=== PATIENT | male | born 1975 | race Caucasian/White ===

== ENCOUNTER 2021-02-03 13:48 | Outpatient (CLI) | payer OTHER, SELFPAY ==
--- NOTE | ~2021-02-03 | XR_ITS ---
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 TECHNIQUE: Right 3rd finger frontal, lateral and oblique projections obtained and reviewed. There is no prior study for comparison. FINDINGS: Status post amputation at the shaft of the right 3rd distal phalanx. Some swelling over th e stump, but no osseous erosive change to suggest osteomyelitis. There are no acute fractures or disl ocations identified. There is no subcutaneous gas. The soft tissue is unremarkable. There are no radiopaque foreign bodies. IMPRESSION: Soft tissue swelling over right 3rd finger tip without osseous erosion. Reviewed, dictated and finalized at location A. IMPRESSION: Soft tissue swelling over right 3rd finger tip without osseous eros ion.
== END 2021-02-03 13:49 | disposition home or self-care (01) ==
PROVIDERS: PCP Family Medicine; Visit Provider Plastic Surgery
DX: M86.141 Other acute osteomyelitis, right hand (principal); M79.89 Other specified soft tissue disorders
CPT/HCPCS: 73140

== ENCOUNTER 2024-11-21 10:28 | Emergency (ER) | payer OTHER, SELFPAY ==
--- NOTE | ~2024-11-21 | XR_ITS ---
Left elbow Technique: AP, oblique, and lateral views were obtained. Clinical History: Pain Findings: No acute fracture or dislocation is seen. Osseous alignment is anatomic. Joint spaces are p reserved. There is no displacement of the fat pads, and soft tissues are unremarkable. Impression: Unremarkable radiographs. Reviewed, dictated and finalized at location . Impression: Unremarkable radiographs.
[2024-11-21 10:38] VITALS: BP 161/108; PULSE 87; RESP 16; TEMP 36.6; O2SAT 96
--- OUTSIDE RECORDS SUMMARY | 2024-11-21 11:28 | XMS_ITS | Clinical Summary ---
[place] [facility] [place] [address] [facility] Address [address] [place] [address] Care Team Providers Care Editor [employer] Name Role Phone Barbara Caballero MD Primary Care Provider + Neymar Bray MD Unavailable Allergies No known active allergies Medications lisinopril-hydr oCHLOROthiazide (PRINZIDE,ZESTO RETIC) 20-12.5 mg per tablet take 0.5 tablet by oral route every day 0 0 6 Active phenytoin ER (DILANTIN EXTENDED) 100 mg ER capsule take 6 capsule by oral route every day 0 0 6 Active Additional Information Patient not taking.Reported on 09/23/2023 aspirin 81 mg tablet take 1 tablet by oral route every day 0 0 6 Active magnesium oxide (MAG-OX) 415 mg (250 mg elemental) tablet take one tablet daily 0 0 6 Active Additional Information Patient not taking.Reported on 10/01/2023 Active Problems Problem Noted Date Diagnosed Date Encounter for screening colonoscopy 03/08/2023 Elevated creatine kinase level 07/06/2016 Overview (11/19/2016): Elevated creatine kinase level Seizure disorder 06/05/2016 Overview (11/19/2016): Seizure disorder Hypertension 06/05/2016 Overview (11/19/2016): Hypertension Medical History Medical History Date Comments Hypertension Family History Medical History Relation Name Comments Coronary artery disease Father Kirstin nary artery disease; Colon cancer Maternal Grandfather Cancer, colon; Coronary artery disease Mother Kirstin nary artery disease; Diabetes Mother Diabetes mellit us; Hypertension Mother Hypertension; Lupus Sister Systemic lupus erythematosus; Relation Name Status Comments Father Maternal Grandfather Mother Sister Social History Tobacco Use Types Packs/Day Years Used Date Smoking Tobacco: Former Cigarettes Q uit: 2021 Comments:Smoking History Pac ks/day: 0.5 Packs Alcohol Use Standard Drinks/Week Comments No 0 (1 standard drink = 0.6 oz pur e alcohol) AUDIT-C Answer Date Recorded Q1: How often do you have a drink containing alcohol? 4 or more times a week 10/01/2023 Q2: How many drinks containi ng alcohol do you have on a typical day when you are drinking? 1 or 2 Q3: How often do you have si x or more drinks on one occasion? Never 10/01/2023 Personal Safety Answer Date Recorded Have you ever been in or are you currently in a harmful physical or emotional relationship or is someone making you feel afraid or unsafe? Denies 10/01/2023 Sex and Gender Information Value Date Recorded Sex Assigned at Not on file Legal Sex Male 4:11 AM [employer] Gender Identity Not on file Sexual Orientation Not on file Obstetrics History Last Filed Vital Signs Vital Sign Reading Time Taken Comments Blood Pressure 107/85 10/01/2023 12:07 PM [employer] Pulse 1 10/01/2023 12:07 PM [employer] Temperature 36.4 C (97.6 F) 10/01/2023 11:45 AM [employer] Respiratory Rate 14 10/01/2023 12:0 7 PM [employer] Oxygen Saturation 97% 10/01/2023 12: 07 PM [employer] Inhaled Oxygen Concentration - - Weight 102.3 kg (225 lb 8.5 oz) 06/24/2020 8:00 PM [employer] Height 175.3 cm (5' 9 ) 06/24/2020 8:00 PM [employer] Body Mass Index 33.31 06/24/2020 8:00 PM [employer] Plan of Treatment Health Maintenance Due Date Last Done Comments Depression Screening 1975 Prostate Cancer Screening-PSA 1974 DTaP/Tdap/Td Vaccine (1 - Tdap) 1985 Hepatitis B Screening 1992 Regular Well Visit/Exam 18-64 1992 Zoster Vaccine (1 of 2) 2024 Covid-19 Vaccine (2023-2 5 season) 2024 11/22/2020, 10/25/2020 Influenza Vaccine (Season Ended) 2025 Colon Cancer Screening-Colonoscopy 10/01/2026 10/01/2023 Hepatitis C Screening Completed 06/05/2016 Pneumococcal vaccine <65 Aged Out No longer eligible based on patient's age to complete this topic Procedures Procedure Name Priority Date/Time Associated Diagnosis Comments COLONOSCOPY 10/01/2023 11:14 AM [employer] SERUM HEPATITIS C AB Routine 06/05/2016 12:09 PM CDT from Last 3 Months or Most Recently Relevant to Health Maintenance Results * Colonoscopy (10/01/2023 11:14 AM [employer]) Anatomical Region Laterality Modality Other Narrative Procedure Note Manny Mccloud MD - 10/01/2023 11:14 AM CST [facility] GI ENDOSCOPY Patient Name: Jann Kay Procedure Date: 10/01/2023 11:14 AM Date of : 1975 Admit Type: Outpatient Age: 48 Gender: Male Attending MD: Manny Mccloud M.D. Room: [facility] ENDOSCOPY ROOM 06 Note Status: Finalized Procedure: Colonoscopy Indications: Screening for colorectal malignant neoplasm Referring MD: Providers: Manny Mccloud M.D. Medicines: Monitored Anesthesia Care Complications: No immediate complications. Estimated Blood Loss: Estimated blood loss: none. Procedure: Pre-Anesthesia Assessment: - Prior to the procedure, a History and Physicalwas performed, and patient medications and allergieswere reviewed. The risks and benefits of the procedureand the sedation options and risks were discussed withthe patient. All questions were answered and informed consent was obtained. Patient identification and proposed procedure were verified. After reviewingthe risks and benefits, the patient was deemed in satisfactory condition to undergo the procedure.The anesthesia plan was to use monitored anesthesiacare (MAC). Immediately prior to administration of medications, the patient was re-assessed foradequacy to receive sedatives. The heart rate, respiratory rate, oxygen saturations, blood pressure, adequacyof pulmonary ventilation, and response to care were monitored throughout the procedure. The physical status of the patient was re-assessed after the procedure. The benefits, risks and alternatives of theprocedure and sedation were discussed and informed consentwas obtained. All questions were answered. Please referto the signed informed consent document in the medical record. The scope was passed under direct vision.The [id number]-LV021N colonoscope was introduced through theanus and advanced to the cecum, identified byappendiceal orifice and ileocecal valve. The colonoscopy was performed without difficulty. The patient tolerated the procedure well. The quality of the bowel preparation was fair. Scope withdrawal time was 13 minutes. Prep was administered in a split dose. Findings: The perianal and digital rectal examinations were normal. A 10 mm polyp was found in the cecum. The polyp was sessile. Thepolyp was removed with a hot snare. Resection and retrieval werecomplete. A 10 mm polyp was found in the hepatic flexure. The polyp wassessile. The polyp was removed with a hot snare. Resection and retrieval were complete. A 10 mm polyp was found in the transverse colon. The polyp wassessile. The polyp was removed with a hot snare. Resection and retrieval were complete. Two polyps were found in the transverse colon. The polyps were diminutive in size. These polyps were removed with a cold biopsy forceps. Resection and retrieval were complete. A diminutive polyp was found in the sigmoid colon. The polyp wasremoved with a cold biopsy forceps. Resection and retrieval were complete. A 10 mm polyp was found in the rectum. The polyp was sessile. Thepolyp was removed with a hot snare. Resection and retrieval werecomplete. Non-bleeding internal hemorrhoids were found during retroflexion. The hemorrhoids were small. The exam was otherwise without abnormality. Impression: - Preparation of the colon was fair. - One 10 mm polyp in the cecum, removed with a hot snare. Resected and retrieved. - One 10 mm polyp at the hepatic flexure, removedwith a hot snare. Resected and retrieved. - One 10 mm polyp in the transverse colon, removed with a hot snare. Resected and retrieved. - Two diminutive polyps in the transverse colon, removed with a cold biopsy forceps. Resected and retrieved. - One diminutive polyp in the sigmoid colon,removed with a cold biopsy forceps. Resected andretrieved. - One 10 mm polyp in the rectum, removed with a hot snare. Resected and retrieved. - Non-bleeding internal hemorrhoids. - The examination was otherwise normal. Recommendation: - Patient has a contact number available for emergencies. The signs and symptoms of potential delayed complications were discussed with thepatient. Return to normal activities tomorrow. Written discharge instructions were provided to thepatient. - High fiber diet. - Continue present medications. - Await pathology results. - Repeat colonoscopy in 3 years for surveillance. Manny Mccloud M.D. Manny Mccloud M.D. 10/01/2023 11:42:37 AM . Number of Addenda: 0 Note Initiated On: 10/01/2023 11:14 AM Recognized by the [place] [employer] for promoting quality in endoscopy us Manny Mccloud MD ENDOSCOPY PROCEDURES Final Resul t * Serum Hepatitis C ab (06/05/2016 12:09 PM CDT) HCV ab Non-Reacti ve Non-Reacti ve CDR HISTORICAL RESULTS Serum 06/05/2016 12:0 9 PM CDT Raj Carney MD LAB BLOOD ORDERABLES Sol ashley Result CDR HISTORICAL RESULTS from Last 3 Months or Most Recently Relevant to Health Maintenance Insurance [employer] [place] [employer] [place] Care Teams Editor [employer] Relationship Specialty Start Date End Date Barbara Caballero MD [address] [place] [id number] PCP - General 06/24/20 Neymar Bray MD [address] [place] [id number] 06/24/20
--- OUTSIDE RECORDS SUMMARY | 2024-11-21 11:28 | XMS_ITS | Data Portability ---
Author Organization [facility] [place], Main Office Address [address] [place] [address] Assessment No assessment recorded. Plan of Treatment Reminders Order Date Submit Date Provider Last Modified By Organization Details Last Modified Time Details Appointments None recorded. Lab CBC w/ auto diff 2023 [facility] (Lab), [address] [place], [address], 4 17:27:21 CMP, serum or plasma 2023 [facility] (Lab), [address] [place], [address], 4 17:27:21 lipid panel, serum [address] (Lab), [address] [place], [address], 5 08:37:06 TSH + free T4, serum 2023 [facility] (Lab), [address] [place], [address], 4 17:27:21 hepatitis C virus Ab, serum [address] (Lab), [address] [place], [address], 5 08:37:07 HbA1c (hemoglobi n A1c), blood 2023 024 [email or web address] 2 [facility] (Lab), [address], [place], [address], 5 08:37:07 Referral gastroente rologist referral 2022 023 [email or web address] Manny Mccloud MD, [address] [facility] , [address], [address], 3 14:17:33 Procedures None recorded. Surgeries None recorded. Imaging CT, chest, w/o contrast - *Please call pt to schedule* [address] [facility] Patient Access Centralized Scheduling, Centralized Scheduling, [address] [facility] , [place], [address], 3 13:24:46 Medication Orders Medrol (Anders) 4 mg tablets in a dose pack 2023 024 [id number], [address], [place], [address], 4 10:07:21 doxycyclin e hyclate 100 mg capsule 2023 024 [id number], [address], [place], [address], 4 10:07:21 lisinopril 20 mg-hydroch lorothiazi de 25 mg tablet 2023 024 [facility]/Pharmacy #[id number], [address], [place], [address], 4 16:15:48 Anaprox DS 550 mg tablet 2023 024 basil [facility]/Pharmacy #[id number], [address], [place], [address], 4 09:38:22 Patient TargetsNo targets recorded. Patient Instructions Encounter Date Encounter Id Patient Instructions Last Modified By Organization Details Last Modified Time 05/29/2024 [id number] Follow up in 6 months Obtain labs Prescriptions sent to pharmacy Tests: Referral: Recommend: Not available 05/29/2024 16:15:42 07/13/2024 [id number] Follow up [place] Prescriptions sent to pharmacy Obtain labs Tests: Referral: Recommend: Pneumococcal vaccine Not available 07/13/2024 10:01:54 Reason for Referral Dental Ceramist Referral for Screening for malignant neoplasm of colon Referring Physician: Barbara Caballero, Family Medicine, Encounter Date: 02/16/2023 Results Created Date Observation Date Name Description Value Unit Range Abnormal Flag Note LastModifiedBy Organization Detail LastModifiedTime 02/12/2002/19/2021 TESTO STERO NE, FREE+ TOTAL LC/MS testosterone , total, lc/MS 365.4 NG/dL 264.0- 916.0 This [facility] rp LC/MS -MS metho d is curre ntly certi fied by the CDC Hormo ne Stand ardiz ation Progr am (HoSt ). Adult male refer ence inter ansatacio is based on a popul ation of healt hy nonob valente males (BMI <30) betwe en 19 and 39 years old. Valeri martinez et.al . JCEM 2017, 102;1 161-1 173. PMID: 99824 103. Not Available [facility] (Lab) [address] [place], [address], 02/19/2021 07:11:22 02/12/2002/19/2021 TESTO STERO NE, FREE+ TOTAL LC/MS testosterone , free 11.00 NG/dL 5.00-2 1.00 Not Available [facility] (Lab) [address] [place], [address], 02/19/2021 07:11:22 02/12/20 21 02/19/2021 TESTO STERO NE, FREE+ TOTAL LC/MS % free testosterone 3.01 % 1.50-4 .20 Perfo rmed at: BN - [facility] rp [address] , [place] [address] Lab Direc tor: Carie de jesus MD, Phone : [phone] Not Available [facility] (Lab) [address] [place], [address], 02/19/2021 07:11:22 02/12/20 21 02/11/2021 HEMOG LOBIN A1C HA1C 5.4 % 4.0-6. 0 Diabe vinny Scree ivory Crite toñito: <5.7% Consi stent with absen ce of diabe vinny 5.7-6 .4% Consi stent with incre ased risk for diabe vinny (pred iabet es) >OR=6 .5% Consi stent with diabe vinny REFER ENCE: Diabe vinny Care 2016, 39(Montiel ppl.1 ):s13 -s22 Not Available [facility] [address] [place], [address], 02/11/2021 22:10:44 02/09/20 23 02/08/2023 CBC/C OMPLE TE BLD COUNT W/DIF F white blood cells 6.5 x10'3 /uL 4.2-10 .8 Not Available [facility] (Lab) [address] [place], [address], 02/08/2023 19:12:44 02/09/20 23 02/08/2023 CBC/C OMPLE TE BLD COUNT W/DIF F red blood cells 5.27 x10'6 /uL 4.10-5 .80 Not Available [facility] (Lab) [address] [place], [address], 02/08/2023 19:12:44 02/09/20 23 02/08/2023 CBC/C OMPLE TE BLD COUNT W/DIF F hemoglobin 15.5 g/dL 13.2-1 7.0 Not Available [facility] (Lab) [address] [place], [address], 02/08/2023 19:12:44 02/09/20 23 02/08/2023 CBC/C OMPLE TE BLD COUNT W/DIF F hematocrit 46.9 % 39.3-5 0.0 Not Available [facility] (Lab) [address] [place], [address], 02/08/2023 19:12:44 02/09/20 23 02/08/2023 CBC/C OMPLE TE BLD COUNT W/DIF F mean red cell volume 89.0 fL 80.0-9 7.0 Not Available [facility] (Lab) [address] [place], [address], 02/08/2023 19:12:44 02/09/20 23 02/08/2023 CBC/C OMPLE TE BLD COUNT W/DIF F mean red cell hemoglobin 29.4 pg 27.0-3 3.0 Not Available [facility] (Lab) [address] [place], [address], 02/08/2023 19:12:44 02/09/20 23 02/08/2023 CBC/C OMPLE TE BLD COUNT W/DIF F mean RBC HGB concentratio n 33.0 g/dL 31.0-3 6.0 Not Available [facility] (Lab) [address] [place], [address], 02/08/2023 19:12:44 02/09/20 23 02/08/2023 CBC/C OMPLE TE BLD COUNT W/DIF F red cell distribution width 12.9 % 11.8-1 5.5 Not Available [facility] (Lab) [address] [place], [address], 02/08/2023 19:12:44 02/09/20 23 02/08/2023 CBC/C OMPLE TE BLD COUNT W/DIF F platelets 218 x10'3 /uL 150-40 0 Not Available [facility] (Lab) [address] [place], [address], 02/08/2023 19:12:44 02/09/20 23 02/08/2023 CBC/C OMPLE TE BLD COUNT W/DIF F mean platelet volume 10.5 fL 9.0-12 .4 Not Available [facility] (Lab) [address] [place], [address], 02/08/2023 19:12:44 02/09/20 23 02/08/2023 CBC/C OMPLE TE BLD COUNT W/DIF F neutrophils 50.9 % 39.0-7 2.0 Not Available [facility] (Lab) [address] [place], [address], 02/08/2023 19:12:44 02/09/20 23 02/08/2023 CBC/C OMPLE TE BLD COUNT W/DIF F lymphocytes 32.8 % 16.0-4 7.0 Not Available [facility] (Lab) [address] [place], [address], 02/08/2023 19:12:44 02/09/2002/08/2023 CBC/C OMPLE TE BLD COUNT W/DIF F monocytes 9.8 % 5.0-12 .0 Not Available [facility] (Lab) [address] [place], [address], 02/08/2023 19:12:44 02/09/2002/08/2023 CBC/C OMPLE TE BLD COUNT W/DIF F eosinophils 5.4 % 1.0-7. 0 Not Available [facility] (Lab) [address] [place], [address], 02/08/2023 19:12:44 02/09/2002/08/2023 CBC/C OMPLE TE BLD COUNT W/DIF F basophils 0.8 % 0.0-2. 0 Not Available [facility] (Lab) [address] [place], [address], 02/08/2023 19:12:44 02/09/20 23 02/08/2023 CBC/C OMPLE TE BLD COUNT W/DIF F immature granulocytes 0.3 % 0.00-0 .50 Not Available [facility] (Lab) [address] [place], [address], 02/08/2023 19:12:44 02/09/2002/08/2023 CBC/C OMPLE TE BLD COUNT W/DIF F neutrophils, absolute count 3.31 x10'3 /uL 1.5-8. 0 Not Available [facility] (Lab) [address] [place], [address], 02/08/2023 19:12:44 02/09/2002/08/2023 CBC/C OMPLE TE BLD COUNT W/DIF F lymphocytes, absolute count 2.13 x10'3 /uL 1.07-3 .43 Not Available [facility] (Lab) [address] [place], [address], 02/08/2023 19:12:44 02/09/2002/08/2023 CBC/C OMPLE TE BLD COUNT W/DIF F monocytes, absolute count 0.64 x10'3 /uL 0.29-0 .99 Not Available [facility] (Lab) [address] [place], [address], 02/08/2023 19:12:44 02/09/2002/08/2023 CBC/C OMPLE TE BLD COUNT W/DIF F eosinophils, absolute count 0.35 x10'3 /uL 0.02-0 .53 Not Available [facility] (Lab) [address] [place], [address], 02/08/2023 19:12:44 02/09/20 23 02/08/2023 CBC/C OMPLE TE BLD COUNT W/DIF F basophils, absolute count 0.05 x10'3 /uL 0.01-0 .08 Not Available [facility] (Lab) [address] [place], [address], 02/08/2023 19:12:44 02/09/2002/08/2023 CBC/C OMPLE TE BLD COUNT W/DIF F immature granulocytes ,absolute 0.02 x10'3 /uL 0.00-0 .05 Not Available [facility] (Lab) [address] [place], [address], 02/08/2023 19:12:44 02/09/20 23 02/08/2023 CBC/C OMPLE TE BLD COUNT W/DIF F nucleated red blood cells 0.0 % -0 Not Available [facility] (Lab) [address] [place], [address], 02/08/2023 19:12:44 02/09/20 23 02/08/2023 CBC/C OMPLE TE BLD COUNT W/DIF F NRBC# 0.00 x10'3 /uL Not Available [facility] (Lab) [address] [place], [address], 02/08/2023 19:12:44 02/09/20 23 02/08/2023 LIPID PANEL cholesterol 167 mg/dL 140-19 9 NIH BOB NSUS RECOM MENDA TION FOR RACHEL STERO L: ADULT CHILD LOW RISK: <200 <170 BORDE RLINE : <200- 239 ----- HIGH RISK: >240 >200 Not Available [facility] (Lab) [address] [place], [address], 02/08/2023 19:31:24 02/09/2002/08/2023 LIPID PANEL triglyceride s 253 mg/dL 0-150 high NIH BOB NSUS REPOR T RECOM MENDA TION FOR TRIGL YCERI HARPREET: ADULT CHILD LOW RISK: <150 ----- BODER LINE: 150-1 99 ----- HIGH RISK: >200 ----- Not Available [facility] (Lab) [address] [place], [address], 02/08/2023 19:31:24 02/09/20 23 02/08/2023 LIPID PANEL HDL cholesterol 28 mg/dL 40- low Not Available [facility] (Lab) [address] [place], [address], 02/08/2023 19:31:24 02/09/20 23 02/08/2023 LIPID PANEL LDL cholesterol, calculated 88 mg/dL 0-130 NIH BOB NSUS REPOR T RECOM MENDA TIONS FOR LDL: ADULT CHILD LOW RISK <130 <110 (OPTI MAL LDL) <100 ----- BORDE RLINE : 130-1 59 ----- HIGH RISK: >160 >130 A TRIGL YCERI DE RESUL T >400 INVAL IDATE S THE CALCU LATIO N FOR LDL FRACT IONAT ION - THE LDL RESUL T WILL NOT BE REPOR TREVA. Not Available [facility] (Lab) [address] [place], [address], 02/08/2023 19:31:24 02/09/20 23 02/08/2023 HEPAT IC/LI ELOY PANEL alkaline phosphatase 52 U/L 38-126 Not Available [facility] (Lab) [address] [place], [address], 02/08/2023 19:31:29 02/09/20 23 02/08/2023 HEPAT IC/LI ELOY PANEL alanine aminotransfe rase 91 U/L 0-50 high Not Available [facility] (Lab) [address] [place], [address], 02/08/2023 19:31:29 02/09/20 23 02/08/2023 HEPAT IC/LI ELOY PANEL aspartate aminotransfe rase 47 U/L 15-46 high Not Available [facility] (Lab) [address] [place], [address], 02/08/2023 19:31:29 02/09/20 23 02/08/2023 HEPAT IC/LI ELOY PANEL bilirubin, total 0.30 mg/dL 0.20-1 .30 Not Available [facility] (Lab) [address] [place], [address], 02/08/2023 19:31:29 02/09/20 23 02/08/2023 HEPAT IC/LI ELOY PANEL bilirubin, conjugated (direct) 0.00 mg/dL 0.00-0 .30 Not Available [facility] (Lab) [address] [place], [address], 02/08/2023 19:31:29 02/09/20 23 02/08/2023 HEPAT IC/LI ELOY PANEL biliurubin,u ncong. (indirect) 0.10 mg/dL 0.00-1 .1 Not Available [facility] (Lab) [address] [place], [address], 02/08/2023 19:31:29 02/09/20 23 02/08/2023 HEPAT IC/LI ELOY PANEL total protein 7.5 g/dL 6.3-8. 2 Not Available [facility] (Lab) [address] [place], [address], 02/08/2023 19:31:29 02/09/20 23 02/08/2023 HEPAT IC/LI ELOY PANEL albumin 4.1 g/dL 3.4-5. 0 Not Available [facility] (Lab) [address] [place], [address], 02/08/2023 19:31:29 02/09/20 23 02/08/2023 HEPAT IC/LI ELOY PANEL globulin 3.4 g/dL 2.6-4. 2 Not Available [facility] (Lab) [address] [place], [address], 02/08/2023 19:31:29 02/09/20 23 02/08/2023 HEPAT IC/LI ELOY PANEL A/G ratio 1.2 ratio 1.0-2. 0 Not Available [facility] (Lab) [address] [place], [address], 02/08/2023 19:31:29 02/09/20 23 02/08/2023 BASIC METAB OLIC PANEL sodium 139 mmol/ L 137-14 5 Not Available [facility] (Lab) [address] [place], [address], 02/08/2023 19:31:39 02/09/20 23 02/08/2023 BASIC METAB OLIC PANEL potassium 4.0 mmol/ L 3.5-5. 1 Not Available [facility] (Lab) [address] [place], [address], 02/08/2023 19:31:39 02/09/20 23 02/08/2023 BASIC METAB OLIC PANEL chloride 102 mmol/ L 98-107 Not Available [facility] (Lab) [address] [place], [address], 02/08/2023 19:31:39 02/09/20 23 02/08/2023 BASIC METAB OLIC PANEL carbon dioxide 26 mmol/ L 22-30 Not Available [facility] (Lab) [address] [place], [address], 02/08/2023 19:31:39 02/09/20 23 02/08/2023 BASIC METAB OLIC PANEL anion gap 15.0 mmol/ L 14-22 Not Available [facility] (Lab) [address] [place], [address], 02/08/2023 19:31:39 02/09/20 23 02/08/2023 BASIC METAB OLIC PANEL glucose 98 mg/dL 70-99 Not Available [facility] (Lab) [address] [place], [address], 02/08/2023 19:31:39 02/09/20 23 02/08/2023 BASIC METAB OLIC PANEL BUN 17 mg/dL 8-19 Not Available [facility] (Lab) [address] [place], [address], 02/08/2023 19:31:39 02/09/20 23 02/08/2023 BASIC METAB OLIC PANEL creatinine 0.75 mg/dL 0.66-1 .25 Not Available [facility] (Lab) [address] [place], [address], 02/08/2023 19:31:39 02/09/20 23 02/08/2023 BASIC METAB OLIC PANEL GFR >60 Refer ence Range : [place] ge GFR Healt hy Adult : >60 mL/mi n/1.7 3 m2 Chron ic Kidne y Disea se: 15-60 mL/mi n/1.7 3 m2 Kidne y Failu re: <15/m L/min /1.73 m2 www.n iddk. nih.g ov The MDRD study equat ion has not been valid ated in child baldomero <18 years of age; pregn ant women ; the elder ly >85 years of age; or in some racia l or ethni c subgr oups, such as id nics. Outsi de the valid ated renetta eters , estim ated GFR is less accur ate, requi ring clini jp judgm ent on a case- by-ca se basis . Clini jp inter preta tion for other races and ages must be made by the clini naheed. The MDRD study equat ion has not been valid ated for the evalu ation of serum creat inine relat ed to nutri jayjay l statu s or medic ation usage . For perso ns <18 years of age, a pedia tric GFR calcu lator is avail able on the F websi te: https ://ryann capellan.matt michael.o gilbert/pr ofess ional s/kdo qi/gf r_cal culat or Not Available [facility] (Lab) [address] [place], [address], 02/08/2023 19:31:39 02/09/20 23 02/08/2023 BASIC METAB OLIC PANEL calcium 8.9 mg/dL 8.4-10 .2 Not Available [facility] (Lab) [address] [place], [address], 02/08/2023 19:31:39 02/09/20 23 02/08/2023 HEMOG LOBIN A1C HA1C 5.7 % 4.0-6. 0 Diabe vinny Scree ivory Crite toñito: <5.7% Consi stent with absen ce of diabe vinny 5.7-6 .4% Consi stent with incre ased risk for diabe vinny (pred iabet es) >OR=6 .5% Consi stent with diabe vinny REFER ENCE: Diabe vinny Care 2016, 39(Montiel ppl.1 ):s13 -s22 Not Available [facility] (Lab) [address] [place], [address], 02/08/2023 19:38:54 02/09/20 23 02/08/2023 TSH thyroid-stim ulating hormone 1.180 uIU/m L 0.465- 4.680 Not Available [facility] (Lab) [address] [place], [address], 02/08/2023 19:54:49 02/09/20 23 02/15/2023 TESTO STERO NE, FREE+ TOTAL LC/MS testosterone , total, lc/MS 315.8 NG/dL 264.0- 916.0 This [facility] rp LC/MS -MS metho d is curre ntly certi fied by the CDC Hormo ne Stand ardiz ation Progr am (HoSt ). Adult male refer ence inter anastacio is based on a popul ation of healt hy nonob valente males (BMI <30) betwe en 19 and 39 years old. Valeri martinez et.al . JCEM 2017, 102;1 161-1 173. PMID: 16298 103. Not Available [facility] (Lab) [address] [place], [address], 02/15/2023 02:07:25 02/09/20 23 02/15/2023 TESTO STERO NE, FREE+ TOTAL LC/MS testosterone , free 9.79 NG/dL 5.00-2 1.00 Not Available [facility] (Lab) [address] [place], [address], 02/15/2023 02:07:25 02/09/20 23 02/15/2023 TESTO STERO NE, FREE+ TOTAL LC/MS % free testosterone 3.10 % 1.50-4 .20 Perfo rmed at: BN - [facility] [place] [address] [facility] , [place] [address] Lab Direc tor: Carie de jesus MD, Phone : [phone] Not Available [facility] (Lab) [address] [place], [address], 02/15/2023 02:07:25 02/04/20 21 02/03/2021 XR, finge r(s), 2 or more view No observ ation record ed. [id number] [facility] (Imaging) [address] [place] [address] [facility], [place], [address], 10/07/2022 16:10:47 06/12/20 21 06/24/2020 CT, abdom en + pelvi s, w/ contr ast No observ ation record ed. [id number] Not Available 10/07/2022 16:10:47 03/03/20 23 03/02/2023 CT, chest , w/o contr ast No observ ation record ed. [address] ([facility]) [address], [place], [address], 03/10/2023 11:25:34 07/17/20 23 07/14/2023 CT, abdom en + pelvi s, w/ contr ast No observ ation record ed. [address] [facility] [address] [place] [address] [address], [place], [address], 12/17/2023 17:09:51 Result Notes None recorded. 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 Active 2019 Not Available [facility] 3 16:10:14 Hypertensi ve disorder 33485534 Active 2019 Rosemary Ellis APRN [address], [place], [address] , [employer] 4 13:46:24 Degenerati on of interverte bral disc 23333851 Active 2019 Rosemary Ellis APRN [address], [address], [place], [address] , [employer] 4 13:46:21 Adult health examinatio n Active 2022 Barbara Caballero MD [address], [place], [address] , [employer] 3 13:28:43 Weight gain 4230865 Active 2022 Barbara Caballero MD [address], [address], [place], [address] , [employer] 3 13:29:01 Prediabete s 236417191 Active 2022 Rosemary Ellis APRN [address], [place], [address] , [employer] 4 13:46:30 Multiple nodules of lung 535431256 Active 2022 Rosemary Ellis APRN [address], [place], [address] , [employer] 4 13:46:27 CT of chest abnormal 4002250864990 9102 Active 2022 Rosemary Ellis APRN [address], [place], [address] , [employer] 4 13:46:19 Upper respirator y infection 12055071 Active 2023 Rosemarytracy ContrerasSHU mahoney [address], [address], [place], [address] , [facility] 4 10:00:31 Persistent cough 639792884 Active 2023 Rosemarytracy ContrerasSHU mahoney [address], [address], [place], [address] , [facility] 4 10:01:02 Problem Notes None recorded. Procedures Surgical History None recorded. Imaging Results Imaging Date Name Status LastModified by [facility] Details LastModified Time 02/03/2021 XR, finger(s), 2 or more view completed [id number] [facility] (Imaging) [address] [place] [address] [address], [place], [address], 10/07/2022 16:10:47 06/24/2020 CT, abdomen + pelvis, w/ contrast completed [id number] Information not available 10/07/2022 16:10:47 03/02/2023 CT, chest, w/o contrast completed [address] ([facility]) [address] [place] [address] , [place], [address], 03/10/2023 11:25:34 07/14/2023 CT, abdomen + pelvis, w/ contrast completed [address] [facility] [address] [place] [address] [facility] [address], [place], [address], 12/17/2023 17:09:51 Procedure Notes None recorded. Medical Equipment None Reported. Allergies No known drug allergies Medications Name Sig Start Date Stop Date Status Note LastModified by Organization Details LastModified Time cyclobenzap rine 10 mg tablet Take 1 tablet 3 times a day by oral route as needed. 11/14 completed Not Available Not Available Not Available prednisone 10 mg tablet TAKE 4 TABLETS BY MOUTH DAILY X3DAYS, 3TABS DAILY X2DAYS, 2TABS DAILY X1DAY, 1TAB DAILY X1DAY 10/21 /2024 completed Not Available Not Available Not Available doxycycline hyclate 100 mg capsule Take 1 capsule twice a day by oral route as directed for 10 days. active Not Available Not Available No t Available benzonatate 200 mg capsule TAKE 1 CAPSULE BY MOUTH THREE TIMES A DAY NEEDED FOR COUGH 07/13 completed Not Available Not Available Not Available dicyclomine 20 mg tablet TAKE 1 TABLET BY MOUTH 3 TIMES A DAY NEEDED 11/14 completed Not Available Not Available Not Available cephalexin 500 mg capsule TAKE 1 CAPSULE BY MOUTH THREE TIMES A DAY 02/17 completed Not Available Not Available Not Available naproxen sodium 550 mg tablet Take 1 tablet every 12 hours by oral route. 07/13 completed Not Available Not Available Not Available lisinopril 20 mg-hydrochl orothiazide 25 mg tablet TAKE 1 TABLET BY MOUTH EVERY DAY. active Not Available Not Available No t Available Tylenol 325 mg tablet Take 2 tablets every 6 hours by oral route. active Not Available Not Available No t Available codeine 10 mg-guaifene sin 100 mg/5 mL oral liquid Take 10 mL every 4 hours by oral route as needed, for persisten t cough. active Not Available Not Available No t Available methylpredn isolone 4 mg tablets in a dose pack Take 1 dose pk every day by oral route as directed. active Not Available Not Available No t Available lisinopril 40 mg tablet Take 1 tablet every day by oral route. 09/21 completed Not Available Not Available Not Available amoxicillin 875 mg-potassiu m clavulanate 125 mg tablet TAKE 1 TABLET BY MOUTH TWICE A DAY 05/29 completed Not Available Not Available Not Available ibuprofen active Not Available Not Jai ilable Not Available naproxen 08/30 completed Not Available Not Available Not Available Ultra Thin Lancets 30 gauge USE TO TEST ONCE DAILY 07/13 completed Not Available Not Available Not Available True Metrix Glucose Test Strip test once daily dx e11.9 07/13 completed Not Available Not Available Not Available True Metrix Air Glucose Meter USE TO TEST ONCE DAILY 07/13 completed Not Available Not Available Not Available Vitals Date Recorded Body mass index (BMI) Body height Oxygen saturation Oxygen saturation in Arterial blood by Pulse oximetry Heart rate Body temperature Body weight Systolic blood pressure Diastolic blood pressure Provider Name and Address Organization Details Last Updated DateTime 1 29.8 kg/m2 175.26 cm 97 % 97 % 80 /min 97.6 [degF] 11283.6 6 g 120 mm[Hg] 84 mm[Hg] Not Available [employer] 3 16:10:11 Date Recorded Body weight Body temperature Heart rate Oxygen saturation Oxygen saturation in Arterial blood by Pulse oximetry Body mass index (BMI) Body height Systolic blood pressure Diastolic blood pressure Provider Name and Address Organization Details Last Updated DateTime 3 52137.3 2 g 96.8 [degF] 85 /min 97 % 97 % 32 kg/m2 176.53 cm 124 mm[Hg] 82 mm[Hg] Mendez Lewis RN [facility] 3 16:31:18 Date Recorded Body weight Body mass index (BMI) Body height Respiratory rate Pain severity - 0-10 verbal numeric rating [Score] - Reported Heart rate Oxygen saturation Oxygen saturation in Arterial blood by Pulse oximetry Systolic blood pressure Diastolic blood pressure Provider Name and Address Organization Details Last Updated DateTime 4 201796. 95 g 35.4 kg/m2 176.53 cm 18 /min 0 76 /min 97 % 97 % 130 mm[Hg] 80 mm[Hg] Rosemary Ellis APRN [address], [place], [address] [facility] 4 16:00:17 Date Recorded Body height Body mass index (BMI) Body weight Body temperature Heart rate Oxygen saturation Oxygen saturation in Arterial blood by Pulse oximetry Systolic blood pressure Diastolic blood pressure Provider Name and Address Organization Details Last Updated DateTime 4 176.53 cm 33.8 kg/m2 001872. 23 g 97.9 [degF] 91 /min 98 % 98 % 134 mm[Hg] 88 mm[Hg] Alicia Smith MA [facility] 4 09:37:50 Social History Question Answer Notes LastModified by Organization Details LastModified Time Tobacco Smoking Status Former Smoker quit around 2015 Barbara Caballero MD [address], [place], [address], [employer] 02/16/2023 16:07:52 Do You Have An Advance Directive? No Information not available 05/29/2024 What Is Your Level Of Alcohol Consumption? Occasional [id number] Information not available 10/07/2022 Is Blood Transfusion Acceptable In An Emergency? Yes Information not available 05/29/2024 What Is Your Level Of Caffeine Consumption? None [id number] Information not available 10/07/2022 How Much Tobacco Do You Chew? None [id number] Information not available 10/07/2022 What Is Your Code Status? Full Code Information not available 05/29/2024 In The 14 Days Before Symptom Onset, Have You Had Close Contact With A Laboratory-confi rmed COVID-19 While That Case Was Ill? No Information not available 05/29/2024 In The 14 Days Before Symptom Onset, Have You Had Close Contact With A Person Who Is Under Investigation For COVID-19 While That Person Was Ill? No Information not available 05/29/2024 What Type Of Diet Are You Following? REGULAR [id number] Information not available 10/07/2022 Which Illicit Or Recreational Drugs Have You Used? No [id number] Information not available 10/07/2022 Do You Or Have You Ever Used E-cigarettes Or Vape? Never Used Electronic Cigarettes [id number] Information not available 10/07/2022 Have There Been Any Changes To Your Family Or Social Situation? No Information not available 05/29/2024 When Did You Quit Smoking? 6-10yearssincelast cigarette Information not available 05/29/2024 Are There Any Guns Present In Your Home? No Information not available 05/29/2024 Do You Use Insect Repellent Routinely? No Information not available 05/29/2024 Where [facility] You Live? [facility] Information not available 05/29/2024 Do You Have A Medical Power Of Senior Analyst Market Intelligence? No Information not available 05/29/2024 What Was The Date Of Your Most Recent Tobacco Screening? 07/13/2024 [email or web address] Information not available 07/13/2024 How Many Children Do You Have? 2 Information not available 05/29/2024 Have You Ever Been Counseled For Unhealthy Alcohol Use? No Information not available 05/29/2024 Do You Have Any Pets? Yes Information not available 05/29/2024 What Is Your Relationship Status? Information not available 05/29/2024 Do You Use Your Seat Belt Or Car Seat Routinely? Yes Information not available 05/29/2024 Are You Sexually Active? Yes Information not available 05/29/2024 Do You Have Smoke And Carbon Monoxide Detectors In Your Home? Yes Information not available 05/29/2024 Are You Passively Exposed To Smoke? Yes Information not available 05/29/2024 Do You Or Have You Ever Used Smokeless Tobacco? Never Used Smokeless Tobacco [id number].[id number] Information not available 10/07/2022 Are There Any Smokers In Your House? Yes Information not available 05/29/2024 Do You Feel Stressed (tense, Restless, Nervous, Or Anxious, Or Unable To Sleep At Night)? [id number] Information not available 05/29/2024 Do You Use Any Illicit Or Recreational Drugs? No Information not available 05/29/2024 Do You Use Sunscreen Routinely? No Information not available 05/29/2024 Has Tobacco Cessation Counseling Been Provided? No Information not available 05/29/2024 Have You Recently Traveled Abroad? No Information not available 05/29/2024 Do You Have Any Dietary Restrictions? No Information not available 05/29/2024 Sex: Male Functional Status Question Answer Note LastModified by Organizat ion Details LastModified Time What is your exercise level? None [id number] Information not available 10/07/2022 Mental Status None recorded. Family History Relationship Description Onset Age of this Age Resolved Age Notes LastModified by Organization Details LastModified Time Mother Hypertensive disorder [id number] Not available 10/07/2022 16:10:02 Mother Congestive heart failure [id number] Not available 10/07/2022 16:10:02 Father Hypertensive disorder [email or web address] Not available 2022 16:06:50 Medical History Condition Response BLINDNESS N RHEUMATIC FEVER N BLADDER PROBLEMS N KIDNEY STONES N MRSA N OTHER # 1 N POLIO N LUNG DISEASE/DISORDER N RADIATION / CHEMOTHERAPY N COPD N Other # 2 N BLOOD DISEASES N SURGERY N EAR OR HEARING PROBLEMS N MUMPS N DEPRESSION (INCLUDING POST ) N FEMALE PROBLEMS / INFECTIONS N BOWEL PROBLEMS N STROKE/TIA N THYROID DISEASE N ULCERS N BENIGN PROSTATIC HYPERPLASIA N MEASLES N CERVICALGIA N TB SKIN TEST N MYOCARDIAL INFARCTION N PARAPELGIA N OBESITY N GERD/NAUSEA N ANEURYSM N URINARY/BLADDER/KIDNEY PROBLEMS N CORONARY ARTERY DISEASE (CAD) N MENIERE'S DISEASE N ADDICTION CONCERNS N ENDOMETRIOSIS N USE OF BLOOD THINNERS N SKIN PROBLEMS N EMPHYSEMA N GASTROINTESTINAL DISORDER N MUSCLE,JOINT OR BONE PROBLEMS N GASTROINTESTINAL BLEEDING N BLOOD CLOTS N ASTHMA N CATARACTS N ERECTILE DYSFUNCTION N GI PROBLEMS N CHF N Low Testosterone N NEUROPATHY N INFERTILITY N AIDS/HIV N FRACTURES N CHEMOTHERAPY / RADIATION N VISION/EYE PROBLEMS N LIVER DISEASE N MALE HYPOGONADISM N HYPERTENSION N TOURETTE'S N ANXIETY DISORDER N BLOOD TRANSFUSION N ANEMIA/BLOOD DISORDER N CHRONIC EAR INFECTIONS N BRONCHITIS N TUBERCULOSIS N GLAUCOMA N FOOT PROBLEM N DIVERTICULITIS N CHICKENPOX N SLEEP APNEA N ALLERGIES/HAYFEVER N INFECTIOUS DISEASE N HEART ARRHYTHMIA N PROSTATE N INSOMNIA N HIGH CHOLESTEROL / HYPERLIPIDEMIA N HYPERTHYROIDISM N EYE PROBLEMS N EATING DISORDER N EDEMA N CHRONIC PAIN SYNDROME N CAROTID BLOCKAGE N CONSTIPATION N BACK / NECK PROBLEMS N HAVE YOU BEEN HOSPITALIZED OR SEEN IN [facility] IN THE PAST YEAR ? N ATHEROSCLEROSIS N BREAST PROBLEMS N DIALYSIS N ECZEMA N FIBROMYALGIA N OSTEOPOROSIS N ARTHRITIS N NO SIGNIFICANT PAST MEDICAL HISTORY N APPENDICITIS N DIABETES, TYPE N BAD TEETH N HEARTBURN / REFLUX N ADD/ADHD N AUTISM SPECTRUM DISORDER (ASD) N HEPATITIS / LIVER DISEASE N PULMONARY DISEASE N GOUT N SLEEP DISORDER N ALZHEIMER'S DISEASE N PAIN N HERPES N DEMENTIA N HEADACHES/MIGRAINES N SEIZURES/EPILEPSY N VASCULAR DISEASE N PACEMAKER N DIZZINESS N HEART DISEASE/HEART PROBLEMS N KIDNEY DISEASE N DEVELOPMENTAL OR BEHAVIORAL DISORDERS N MULTIPLE SCLEROSIS N SCARLET FEVER N MENTAL DISORDER/ILLNESS N CARDIAC ARRHYTHMIA N CANCER: SPECIFY N PNEUMONIA N ATRIAL FIBRILLATION N Gall Stones N PULMONARY EMBOLISM N AUTOIMMUNE DISEASE N Immunizations Vaccine Type Date Status Note Provider Nam e and Address Organization Details Recorded Time COVID-19, mRNA, LNP-S, PF, 100 mcg/0.5mL dose or 50 mcg/0.25mL dose 10/25/2020 completed Rosemary Ellis APRN [address], [place], [address], [place] [employer] 05/23/2024 13:45:10 COVID-19, mRNA, LNP-S, PF, 100 mcg/0.5mL dose or 50 mcg/0.25mL dose 11/22/2020 completed Rosemary Ellis APRN [address], [place], [address], [place] [employer] 05/23/2024 13:45:10 Past Encounters Encounter ID Performer Location Encounter Start Date Encounter Closed Date Diagnosis/Indication Diagnosis SNOMED-CT Code Diagnosis ICD10 Code Diagnosis Note [id number] [facility] [place] Primary Care [facility] [address] [facility] [address] [place] [address] 11/14/2020 00:00:00 12/05/2020 14:13:02 [id number] [facility] Primary Care [address] [place] [address] 02/11/2021 00:00:00 02/11/2021 08:55:06 [id number] S_G Primary Care [facility] [address] [facility] [address] [facility] [place] [address] 02/17/2021 00:00:00 02/17/2021 14:46:21 [id number] Barbara Caballero MD [facility] [place] Primary Care [facility] [address] [facility] [address] [place] [address] 02/08/2023 08:01:22 03/08/2023 16:32:58 [id number] Barbara Caballero MD [facility] [place] Primary Care [facility] [address] [facility] [address] [facility] [place] [address] 02/16/2023 15:55:17 02/16/2023 16:31:42 Adult health examination 176581707 Z00.00 E78.5 Z79.899 colonoscop y referral givenlabs up to dateflu vaccine yearlycovi d booster this fallshingr ix vaccine series at age 49 Prediabetes 281460040 R7 3.03 resolved with lifestyle changes Screening for malignant neoplasm of colon 792711575 Z12.11 Multiple n odules of lung 039969650 R91.8 [id number] Rosemary Ellis APRN [facility] Internal Med [facility] [address] [facility] [address] [place] [address] 05/29/2024 15:32:45 05/29/2024 16:18:59 Diabetes mellitus screening 218279625 Z13.1 Hyperlipid emia screening 293979153 Z13.220 Screening for disorder 852386504 Z13.9 Thyroid di sorder screening 138267950 Z13.29 Hepatitis C screening 41 0703355 Z11.59 Hypertensive disorder 38 719762 I10 Degenerati on of intervertebral disc 94700154 M51.9 [id number] Rosemary Ellis APRN [facility] Internal Med [facility] [address] [facility] [address] [place] [address] 07/13/2024 09:20:37 07/13/2024 10:40:16 Upper respiratory infection 55664211 J06.9 Persistent cough 1466998 02 R05.3 Health Concerns Section Related Observation LastModified by Organization Detai ls LastModified Time None Recorded Concern Status LastModified by Organization Details LastModified Time None Recorded Advance Directives Directive N: Payers Encounter Date Sequence Insurance Name Policy Number Policy Blunt Covered Member ID Blunt Member ID Guarantor Name 02/08/2023 1 [place] [id number] Jann Kay [id number] Jann Kay 02/16/2023 1 [place] [id number] Jann Littlejohn Petras [id number] Jann Kay 05/29/2024 1 [place] [id number] Jann Littlejohn Petras [id number] Jann Kay 07/13/2024 1 [place] [id number] Jann Kay [id number] Jann Kay Notes Date Note Type Note Provider Name and Address Organization Details Recorded Time 02/16/2023 text/html here for wellnes s exam. Barbara Caballero MD [address] [facility], [place], [address], [facility] [employer] [facility] 03/08/2023 10:16:55 05/29/2024 text/html Jann presents today to establish care as a new patient. He is also in need of medication refills. Rosemary Ellis APRN [address] [facility] [address], [place], [address], [facility] [employer] [facility] 05/29/2024 16:15:54 07/13/2024 text/html Jann presents today for a release to return to work. He states that he started having symptoms on Wednesday, he has been running a fever, cough, sweating, lethargic at times. He also has a rash on his palms, h states that it is not itching or painful. He does state that he has been hunting deer a few weeks ago and cleaning them. 05/29/2024Jann presents today to establish care as a new patient. He is also in need of medication refills. Rosemary Ellis APRN [address] [facility] [address], [place], [address], [facility] [employer] [facility] 07/13/2024 10:09:05
--- OUTSIDE RECORDS SUMMARY | 2024-11-21 11:28 | XMS_ITS | Referral Summary ---
Author Organization [facility] [address] [facility] Address [address] [place] [address] Care Team Providers Care Rfid Systems Engineer Name Role Phone Barbara Caballero MD Primary Care Provider + Neymar Bray MD Unavailable [phone] Allergies No known active allergies Medications lisinopril-hydr [...] Seizure disorder Hypertension 06/05/2016 Overview (11/19/2016): Hypertension Social History Tobacco Use Types Packs/Day Years [...] on file Legal Sex Male 4:11 AM PIGMENT GRINDER Gender Identity Not on file Sexual Orientation Not on file Last Filed Vital Signs Vital Sign Reading Time Taken Comments Blood Pressure 107/85 10/01/2023 12:07 PM PIGMENT GRINDER Pulse 1 10/01/2023 12:07 PM PIGMENT GRINDER Temperature 36.4 C (97.6 F) 10/01/2023 11:45 AM PIGMENT GRINDER Respiratory Rate 14 10/01/2023 12:0 7 PM PIGMENT GRINDER Oxygen Saturation 97% 10/01/2023 12: 07 PM PIGMENT GRINDER Inhaled Oxygen Concentration - - Weight 102.3 kg (225 lb 8.5 oz) 06/24/2020 8:00 PM PIGMENT GRINDER Height 175.3 cm (5' 9 ) 06/24/2020 8:00 PM PIGMENT GRINDER Body Mass Index 33.31 06/24/2020 8:00 PM PIGMENT GRINDER Plan of Treatment Not on file Procedures Procedure Name Priority Date/Time Associated Diagnosis Comments COLONOSCOPY 10/01/2023 11:14 AM PIGMENT GRINDER SERUM HEPATITIS C AB Routine 06/05/2016 12:09 PM CDT from Last 3 Months or Most Recently Relevant to Health Maintenance Results * Colonoscopy (10/01/2023 11:14 AM PIGMENT GRINDER) Anatomical Region Laterality Modality Other Narrative Procedure Note Manny Mccloud MD - 10/01/2023 11:14 AM CST [facility] GI ENDOSCOPY Patient Name: Jann Kay Procedure Date: 10/01/2023 11:14 AM Date of : 1975 Admit Type: Outpatient Age: 48 Gender: Male Attending MD: Manny Mccloud M.D. Room: [facility] ENDOSCOPY ROOM 06 Note Status: Finalized Procedure: [...] The scope was passed under direct vision.The [id number]-[id number] colonoscope was introduced through theanus and advanced [...] On: 10/01/2023 11:14 AM Recognized by the [place] for promoting quality in endoscopy Manny Mccloud MD ENDOSCOPY PROCEDURES Final Resul t * Serum Hepatitis C ab (06/05/2016 12:09 PM CDT) HCV ab Non-Reacti ve Non-Reacti ve CDR HISTORICAL RESULTS Serum 06/05/2016 12:0 9 PM CDT Raj Carney MD LAB BLOOD ORDERABLES Sol ramirez Result CDR HISTORICAL RESULTS from Last 3 Months or Most Recently Relevant to Health Maintenance Insurance [employer] [place] [employer] [place] [employer] [place] Care Teams Rfid Systems Engineer Relationship Specialty Start Date End Date Barbara Caballero MD [address] [place] [address] [address] PCP - General 06/24/20 Neymar Bray MD [address] [place] [address] 06/24/20
--- NOTE | 2024-11-21 12:16 | ED.UPPEXIN ---
HPI - Extremity Injury (Upper) General Chief Complaint: Extremity Injury, Upper Stated Complaint: L elbow pain Time Seen by Provider: 11/21/24 11:39 History of Present Illness HPI narrative: 49-year-old male with history of hypertension presents to emergency department for left elbow pain after an injury that occurred 4 days ago. Patient states he was at work 4 days ago and picked up a heavy piece of plywood and felt a pop in the medial aspect of his elbow. He has had pain to the medial aspect of his elbow since then has developed ecchymosis to this region. He states he is having difficulty lifting of objects due to pain. He denies weakness or pain to the hand, weakness or pain to the shoulder. No other injuries acquired. Related Data Allergies Allergy/AdvReac Type Severity Reaction Status Date / Time No Known Allergies Allergy Mild Verified 11/21/24 10:45 Review of Systems Review of Systems: All systems reviewed & are unremarkable except as noted in HPI and below Exam Narrative: GENERAL: Well-appearing, well-nourished, and in no acute distress. HEAD: Normocephalic, atraumatic. EYES: EOMI. ENT: Nares clear, no rhinorrhea or epistaxis. Mucous membranes moist. NECK: Supple. CHEST: Clear to auscultation. No respiratory distress. HEART: Regular rate and rhythm. No murmur heard. Normal peripheral pulses. EXTREMITIES: Tenderness over the left proximal and distal humerus with overlying green ecchymosis. Compartments are soft, no edema. Patient has full active and passive range of motion of elbow, wrist and fingers. Radial, median and ulnar nerves are intact. Radial pulse 2 +. Sensation intact throughout. Negative Yergason's test. no Marvin deformity SKIN: Warm, dry, no rash. NEURO: No focal deficits. Alert and oriented x3 Course Vital Signs Vital signs: Vital Signs Temperature 97.9 F 11/21/24 10:38 Pulse Rate 87 11/21/24 10:38 Respiratory Rate 16 11/21/24 10:38 Blood Pressure 161/108 H 11/21/24 10:38 Pulse Oximetry 96 11/21/24 10:38 Oxygen Delivery Room Air 11/21/24 10:38 Temperature 97.9 F 11/21/24 10:38 Pulse Rate 79 11/21/24 12:22 Respiratory Rate 15 11/21/24 12:22 Blood Pressure 150/95 H 11/21/24 12:22 Pulse Oximetry 99 11/21/24 12:22 Oxygen Delivery Room Air 11/21/24 10:38 MDM - Extremity Injury (Upper) MDM Narrative Medical decision making narrative: 49-year-old male presents emergency department for left medial elbow pain for 4 days. Four days ago patient lifted up a heavy piece of plywood and felt a pop to this area, has since developed increased bruising and pain. Pain is worse when flexing his elbow while picking up objects. Triage vitals with hypertension, otherwise unremarkable. Patient is afebrile and nontoxic appearing. Exam is significant for the above. Patient is neurovascularly intact with no obvious deformity. X-ray of the elbow is unremarkable. Patient updated on results. Presentation consistent with medial epicondylitis/strain. He was given Flexeril and naproxen with improvement. Offered Trav wrap and sling however patient declined states he will get a wrap [id number] at pharmacy. Advised follow-up with orthopedist, return precautions discussed. He is agreeable with the plan verbalized understanding. Discharged in stable condition. Discharge Plan Discharge Clinical Impression: Elbow strain Qualifiers: Encounter type: initial encounter Laterality: left Qualified Code(s): S56.912A - Strain of unspecified muscles, fascia and tendons at forearm level, left arm, initial encounter Patient Disposition: Home Condition: Stable Instructions: Antibiotic Form, Elbow Sprain (ED) Additional Instructions: Rest, ice, elevate and compress. Take the medications as directed. Return to the emergency department if you develop new or worsening symptoms. Patient Language: Burkinan Prescriptions: New cyclobenzaprine 10 mg tablet 10 mg PO TID PRN (Reason: muscle spasm) Qty: 14 0RF naproxen 500 mg tablet 500 mg PO BID PRN (Reason: pain) Qty: 20 0RF Follow-up/Referrals: Zaki Hutson MD [Physician] - UNKNOWN,DOCTOR [Primary Care Provider] -
[2024-11-21] MEDS: NAPROXEN 500 MG TABLET PO (12:21)
[2024-11-21] MEDS: CYCLOBENZAPRINE HCL 10 MG TABLET PO (12:21)
[2024-11-21 12:22] VITALS: BP 150/95; PULSE 79; RESP 15; O2SAT 99
--- OUTSIDE RECORDS SUMMARY | 2024-11-21 13:07 | XMS_ITS | Referral Summary ---
Author Organization [facility] [address] [facility] Address [address] [place] [address] Care Team Providers Care Photostatic Copy Maker Name Role Phone Barbara Caballero MD Primary Care Provider + Neymar Bray MD Unavailable [phone] Allergies No known active allergies Medications [...] on file Legal Sex Male 4:11 AM BENCH WORKER Gender Identity Not on file Sexual Orientation Not on file Last Filed Vital Signs Vital Sign Reading Time Taken Comments Blood Pressure 107/85 10/01/2023 12:07 PM BENCH WORKER Pulse 1 10/01/2023 12:07 PM BENCH WORKER Temperature 36.4 C (97.6 F) 10/01/2023 11:45 AM BENCH WORKER Respiratory Rate 14 10/01/2023 12:0 7 PM BENCH WORKER Oxygen Saturation 97% 10/01/2023 12: 07 PM BENCH WORKER Inhaled Oxygen Concentration - - Weight 102.3 kg (225 lb 8.5 oz) 06/24/2020 8:00 PM BENCH WORKER Height 175.3 cm (5' 9 ) 06/24/2020 8:00 PM BENCH WORKER Body Mass Index 33.31 06/24/2020 8:00 PM BENCH WORKER Plan of Treatment Not on file Procedures Procedure Name Priority Date/Time Associated Diagnosis Comments COLONOSCOPY 10/01/2023 11:14 AM BENCH WORKER SERUM HEPATITIS C AB Routine 06/05/2016 12:09 PM CDT from Last 3 Months or Most Recently Relevant to Health Maintenance Results * Colonoscopy (10/01/2023 11:14 AM BENCH WORKER) Anatomical Region Laterality Modality Other Narrative Procedure Note Manny Mccloud MD - 10/01/2023 11:14 AM CST [facility] GI ENDOSCOPY Patient Name: Jann Kay Procedure Date: 10/01/2023 11:14 AM Date of : 1975 Admit Type: Outpatient Age: 48 Gender: Male Attending MD: Manny Mccloud M.D. Room: [facility] ENDOSCOPY ROOM 06 Note Status: Finalized Procedure: [...] The scope was passed under direct vision.The [id number]-[id number] colonoscope was introduced through theanus and advanced [...] On: 10/01/2023 11:14 AM Recognized by the [place] [employer] for promoting quality [...] Most Recently Relevant to Health Maintenance Insurance [employer] [place] [employer] [place] [employer] [place] Care Teams Photostatic Copy Maker Relationship Specialty Start Date End Date Barbara Caballero MD [address] [place] [address] [address] PCP - General 06/24/20 Neymar Bray MD [address] [place] [address] 06/24/20
--- OUTSIDE RECORDS SUMMARY | 2024-11-21 13:07 | XMS_ITS | Clinical Summary ---
Author Organization [facility] [address] [facility] Address [address] [place] [address] Care Team Providers Care Elastic Attacher Chainstitch Name Role Phone Barbara Caballero MD Primary Care Provider + Neymar Bray MD Unavailable [phone] Allergies No known active allergies Medications [...] on file Legal Sex Male 4:11 AM MUSICAL PERFORMER Gender Identity Not on file Sexual Orientation Not on file Obstetrics History Last Filed Vital Signs Vital Sign Reading Time Taken Comments Blood Pressure 107/85 10/01/2023 12:07 PM MUSICAL PERFORMER Pulse 1 10/01/2023 12:07 PM MUSICAL PERFORMER Temperature 36.4 C (97.6 F) 10/01/2023 11:45 AM MUSICAL PERFORMER Respiratory Rate 14 10/01/2023 12:0 7 PM MUSICAL PERFORMER Oxygen Saturation 97% 10/01/2023 12: 07 PM MUSICAL PERFORMER Inhaled Oxygen Concentration - - Weight 102.3 kg (225 lb 8.5 oz) 06/24/2020 8:00 PM MUSICAL PERFORMER Height 175.3 cm (5' 9 ) 06/24/2020 8:00 PM MUSICAL PERFORMER Body Mass Index 33.31 06/24/2020 8:00 PM MUSICAL PERFORMER Plan of Treatment Health Maintenance Due Date [...] Associated Diagnosis Comments COLONOSCOPY 10/01/2023 11:14 AM MUSICAL PERFORMER SERUM HEPATITIS C AB Routine 06/05/2016 12:09 PM CDT from Last 3 Months or Most Recently Relevant to Health Maintenance Results * Colonoscopy (10/01/2023 11:14 AM MUSICAL PERFORMER) Anatomical Region Laterality Modality Other Narrative Procedure Note Manny Mccloud MD - 10/01/2023 11:14 AM CST [facility] GI ENDOSCOPY Patient Name: Jann Kay Procedure Date: 10/01/2023 11:14 AM Date of : 1975 Admit Type: Outpatient Age: 48 Gender: Male Attending MD: Manny Mccloud M.D. Room: [facility] ENDOSCOPY ROOM 06 Note Status: Finalized [...] The scope was passed under direct vision.The [id number] colonoscope was introduced through theanus and advanced [...] On: 10/01/2023 11:14 AM Recognized by the [place] [employer] Gastrointestinal Endoscopy for promoting quality [...] Most Recently Relevant to Health Maintenance Insurance [employer] ID Care Teams Elastic Attacher Chainstitch Relationship Specialty Start Date End Date Barbara Caballero MD [address] [place] [id number] PCP - General 06/24/20 Neymar Bray MD [address] [place] [address] 06/24/20
[2024-11-21 13:08] VITALS: BP 153/114; PULSE 77; RESP 16; O2SAT 99
== END 2024-11-21 13:11 | disposition home or self-care (01) ==
PROVIDERS: Emergency Provider Physician Assistant
DX: S56.912A Strain of unspecified muscles, fascia and tendons at forearm level, left arm, initial encounter (principal); X50.0XXA Overexertion from strenuous movement or load, initial encounter
CPT/HCPCS: 73080; 99283; A9270

== ENCOUNTER 2024-11-30 12:42 | Outpatient (CLI) | payer OTHER, SELFPAY ==
--- NOTE | ~2024-11-30 | MR_ITS ---
MRI of the left elbow CLINICAL HISTORY: Pain, lifting injury TECHNIQUE: Proton-density and proton-density fat-sat images were acquired in the axial, coronal, and sagittal planes. Ulnar collateral ligament is intact. Radial collateral ligament and the lateral ulnar collateral liga ment are intact. Common flexor tendon origin is intact. There is moderate grade interstitial tear at the common extensor tendon origin of the lateral epicondyle of the humerus. Bone marrow signals are unremarkable. No osseous or articular abnormality of the elbow. No joint effu david. There is complete rupture of the distal biceps tendon, with wavy retracted distal tendon. There is re traction by approximately 6 cm. Brachialis and triceps tendons are intact. There is extensive soft ti ssue edema and fluid surrounding the retracted torn distal biceps tendon, with additional edematous c hange and fluid involving the distal biceps muscle belly near the myotendinous junction region. IMPRESSION: Complete rupture of the distal biceps tendon with retraction by 6 cm. Superimposed probable focal gra de 2 partial tear of the distal biceps muscle belly at the myotendinous junction region. The tendon d emonstrates a retracted wavy morphology. Moderate grade interstitial tear of the common extensor tendon origin at the lateral epicondyle humer us. Reviewed, dictated and finalized at location . IMPRESSION: Complete rupture of the distal biceps tendon with retraction by 6 cm. Superimpo sed probable focal grade 2 partial tear of the distal biceps muscle belly at th e myotendinous junction region. The tendon demonstrates a retracted wavy morpho logy. Moderate grade interstitial tear of the common extensor tendon origin at the la teral epicondyle humerus.
== END 2024-11-30 12:43 | disposition home or self-care (01) ==
LOC: GOSHIMG 12:42
PROVIDERS: PCP Orthopaedic Surgery; Visit Provider Orthopaedic Surgery
DX: S46.212A Strain of muscle, fascia and tendon of other parts of biceps, left arm, initial encounter (principal); X58.XXXA Exposure to other specified factors, initial encounter
CPT/HCPCS: 73221